=== PATIENT | female | born 1955 | race Caucasian/White ===

== ENCOUNTER 2025-04-25 14:55 | Outpatient (CLI) | payer MEDICAID, MEDICARE ==
[~2025-04-25 14:55] MED LIST: FURO-149 PO; HYDROCODONE PO; LORA10TA65 PO; METF750T46 PO; POTA-207 PO
--- NOTE | 2025-04-25 16:36 | RADIOLOGY REPORT ---
EXAM: DI KNEE, COMP 4 VW MIN CLINICAL INDICATION: ACUTE BILATERAL KNEE PAIN TECHNIQUE: DI KNEE, COMP 4 VW MIN Comparison: None FINDINGS/IMPRESSION: There is no evidence of acute fracture or dislocation. Left total knee arthroplasty. Right total knee arthroplasty. The alignment is anatomical. There is no radiopaque foreign body.
--- NOTE | 2025-04-25 16:36 | RADIOLOGY REPORT ---
EXAM: DI KNEE, COMP 4 VW MIN CLINICAL INDICATION: ACUTE BILATERAL KNEE PAIN TECHNIQUE: DI KNEE, COMP 4 VW MIN Comparison: None FINDINGS/IMPRESSION: There is no evidence of acute fracture or dislocation. Right total knee arthroplasty. The alignment is anatomical. There is no radiopaque foreign body.
== END 2025-04-25 23:59 | disposition home or self-care (01) ==
LOC: RAD 14:55
PROVIDERS: ATTEND Student in an Organized Health Care Education/Training Program
DX: M25.561 Pain in right knee (principal); Z96.651 Presence of right artificial knee joint
CPT/HCPCS: 73564

== ENCOUNTER 2025-06-01 14:03 | Outpatient (CLI) | payer MEDICARE, MEDICAID ==
--- NOTE | 2025-06-01 16:55 | VASCULAR REPORT ---
LEFT LOWER EXTREMITY VENOUS DUPLEX REASON FOR EXAMINATION: Left lower extremity pain and swelling. Fall 5 weeks ago. COMPARISON: None TECHNIQUE: Using real-time freeze-frame technique with a high-frequency transducer, multiple longitu dinal and transverse sections were obtained. Simultaneous color flow and spectral Doppler imaging wa s performed. FINDINGS: There is good visualization of the deep venous system with no intraluminal filling defects identified. Normal venous compressibility is seen and there is flow augmentation. Color flow Doppler imaging is unremarkable. The contralateral (right) common femoral vein demonstrates expected color and spectral doppler flow. IMPRESSION: NO EVIDENCE OF DEEP VENOUS THROMBOSIS.
== END 2025-06-01 23:59 | disposition home or self-care (01) ==
LOC: VAS 14:03
PROVIDERS: ATTEND Student in an Organized Health Care Education/Training Program
DX: M79.662 Pain in left lower leg (principal)
CPT/HCPCS: 93971

== ENCOUNTER 2025-09-08 10:46 | Outpatient (CLI) | payer MEDICARE, MEDICAID ==
[2025-09-06 16:54] LABS: CREATININE 0.93 MG/DL (0.40-0.90); TOTAL CARBON DIOXIDE 30.8 MMOL/L (24-32); eGFR 60 ML/MIN
[~2025-09-08 10:46] MED LIST changes: +diatr meglu/diatrizoate 30ml oral sol.-(3 dose) bottle PO SCH; +iohexol 300mg/ml 100ml inj. ONE
--- NOTE | 2025-09-08 11:44 | RADIOLOGY REPORT ---
CLINICAL HISTORY: EPIGASTRIC PAIN TECHNIQUE: CT of the abdomen and pelvis was performed with IV contrast. This exam was performed according to our departmental dose optimization program. Up-to-date CT equipment and radiation dose reduction techniques are utilized as appropriate. CTDI 37 DLP 1899 COMPARISON: None.FINDINGS: Abdomen/Pelvis: The kidneys, bladder, and uterus are unremarkable. There are bilateral adrenal myelolipoma is, measuring up to 2.9 cm on the left. There is diffuse hepatic steatosis. The gallbladder is absent. There is mild pancreatic parenchymal volume loss. The spleen is borderline enlarged, measuring 13.5 cm in long axis. There is a subtle enhancing lesion at the superior spleen measuring 1 cm. The abdominal aorta is normal in course and caliber. There are no significant atherosclerotic calcifications. There is no free intraperitoneal air or fluid. There is no enlarged abdominal or pelvic lymph node. There is no bowel wall thickening or dilatation. The appendix is normal. There is colonic diverticulosis, [id number] within the descending colon. There is diffuse lower abdominal wall skin thickening with underlying inflammation. Other: The imaged lower thorax demonstrates a tiny hiatal hernia and minimal linear bilateral lower lobe atelectasis. No acute osseous abnormality is evident. IMPRESSION: No acute CT abnormality in the abdomen/pelvis. Diffuse lower skin soft tissue thickening and inflammation. Please correlate with physical exam for cellulitis. Diffuse hepatic steatosis. Borderline splenomegaly. Subtle 1 cm enhancing lesion at the spleen superiorly, which may represent hemangioma. If more definitive assessment is warranted, MRI with and without IV contrast can be considered. Colonic diverticulosis. Bilateral adrenal myelolipomas. Cholecystectomy.
== END 2025-09-08 23:59 | disposition home or self-care (01) ==
LOC: RAD 10:46
PROVIDERS: ATTEND Student in an Organized Health Care Education/Training Program
DX: K44.9 Diaphragmatic hernia without obstruction or gangrene (principal); R10.13 Epigastric pain; K76.0 Fatty (change of) liver, not elsewhere classified; C90.00 Multiple myeloma not having achieved remission; K57.30 Diverticulosis of large intestine without perforation or abscess without bleeding
CPT/HCPCS: 36415; 74177; 80053; Q9963; Q9967